=== PATIENT | male | born 1985 | race Two or more races ===

== ENCOUNTER 2020-12-18 10:00 | Outpatient (CLI) | payer OTHER | END 2020-12-18 10:15 | disposition home or self-care (01) | LOC: PPH VACUNA 10:00 | PROVIDERS: ATTEND Emergency Medicine Pediatric Emergency Medicine | DX: Z23 Encounter for immunization (principal) ==

== ENCOUNTER 2021-04-17 07:46 | Day surgery (SDC) | payer OTHER ==
[2021-04-17] MEDS ORDERED: RECTICARE30 GM TOP (10:34)
[2021-04-17] MEDS ORDERED: PERCOCET 5-3251 EACH PO (10:34)
== END 2021-04-17 14:45 | disposition home or self-care (01) ==
LOC: CIR.AMB 07:46
PROVIDERS: ATTEND Surgery
DX: K60.2 Anal fissure, unspecified (principal); K62.4 Stenosis of anus and rectum

== ENCOUNTER 2024-11-20 07:00 | Day surgery (SDC) | payer OTHER ==
[2024-11-15 08:19] VITALS: BP 149/93
[2024-11-15 09:07] LABS: URINE APPEARANCE Clear; URINE BILIRRUBIN Negative (NEGATIVE); URINE BLOOD Negative; URINE COLOR Yellow; URINE KETONE 15 (NEGATIVE); URINE LEUKOCYTE Negative; URINE NITRATE Negative; URINE PROTEIN Negative (NEGATIVE); URINE UROBILINOGEN 0.2 E.U./dl
[2024-11-15 09:12] LABS: URINE BACTERIA 0 uL (0.0-1933); URINE CAST 0.00 uL (0.0-1.40); URINE EPITHELIAL CELLS 2.7 uL (0.0-38.8); URINE GLUCOSE >=1000 MG/DL (NEGATIVE); URINE RBC 0.7 uL (0.0-20.8); URINE WBC 1.9 uL (0.0-23.2)
[2024-11-15 09:38] LABS: INR 1.06
[2024-11-15 09:46] LABS: BASO % 0.3 % (0.1-1.2); EOS # 0.13 (0.04-0.54); EOS % 2.0 % (0.7-7.0); LYMPH # 1.76 (1.18-3.74); LYMPH % 26.4 % (19.3-53.1); MEAN PLATELET VOLUME 10.40 fl (9.4-12.4); MONO # 0.58 (0.24-0.82); MONO % 8.7 % (4.7-12.5); NEUT # 4.14 (1.56-6.13); NEUT % 62.1 % (34.0-71.1); RED CELL DISTRIBUTION WIDTH 14.4 % (11.6-14.4)
[2024-11-15 10:01] LABS: ALT/SGPT 92.0 U/L (12-78); AST/SGOT 34.0 U/L (15-37); BILIRUBIN TOTAL 0.55 mg/dL (0.3-1.2); BUN CREA RATIO 23.0 (7.0-25.0); CREATININE SERUM 0.71 mg/dL (0.70-1.30); GFR 123.51; GLOBULINA 3.1 G/DL (2.4-3.5); GLUCOSE FASTING 135.0 mg/dL (65-100); OSMOLALITY SERUM 281.0 MOSM/KG (275-295)
[~2024-11-20] VITALS: Ht 182.9 cm; Wt 88.5 kg
[~2024-11-20 07:00] MED LIST: METFORMIN HCL500 M3; PERCOCET 5-3251 EACH PO; RECTICARE30 GM TOP
[2024-11-20] MEDS ORDERED: LIDOCAINE HCL 1%/EPINEPHRINE 20ML VIAL IJ ONE (10:00)
[2024-11-20] MEDS ORDERED: OXYMETAZOLINE HCL 15 ML NASAL DROPS NASAL ONE (10:00)
[2024-11-20] MEDS ORDERED: CEFAZOLIN SODIUM 1,000 MG VIAL IV ONE (10:00)
[2024-11-20] MEDS ORDERED: TRIAMCINOLONE ACETONIDE 40 MG/ML VIAL IJ ONE (10:15)
[2024-11-20] MEDS ORDERED: DEXAMETHASONE SODIUM PHOSPHATE 4 MG/ML VIAL IV ONE (10:15)
[2024-11-20] MEDS ORDERED: MORPHINE SULFATE 4 MG/ML VIAL IV ONE (11:30)
== END 2024-11-20 15:10 | disposition home or self-care (01) ==
LOC: CIR.AMB 07:00
PROVIDERS: ATTEND Otolaryngology
DX: J38.1 Polyp of vocal cord and larynx (principal); J38.3 Other diseases of vocal cords; R49.0 Dysphonia